=== PATIENT | female | born 1965 | race Caucasian/White ===

== ENCOUNTER 2016-08-16 21:54 | Emergency (ER) | payer OTHER ==
[~2016-08-16] VITALS: Ht 160 cm; Wt 89.5 kg
[~2016-08-16 21:54] MED LIST: ESCI1TAB10 PO; QUET1TAB32 PO; SYN125 PO
[2016-08-16 22:01] VITALS: TEMP 36.5; Ht 160 cm; Wt 89.5 kg
[2016-08-16] MEDS ORDERED: XYLOCAINE 1%/SOD BICARB 20 ML VIAL INFIL ONE (22:13)
[2016-08-16] MEDS ORDERED: TRAZ100T29 PO (22:39)
[2016-08-16 23:07] VITALS: BP 108/67; PULSE 73; O2SAT 100
--- NOTE | 2016-08-17 01:39 | EMERGENCY ROOM VISIT NOTE ---
ED Visit Note First contact with patient: 22:14 Chief Complaint: I cut my right thumb. History of Present Illness: Ms. Montero is a 50-year-old white female who ambulates into the ED accompanied by her complaining of a right thumb laceration. Patient reports less than an hour ago she was cleaning a kitchen knife and accidentally cut her left thumb. Prior to arrival at the hospital she did control bleeding but did not wash the wound. Currently she denies any associated pain with her injury. She reports mild paresthesias over the ulnar side of the thumb. She denies any fevers, chills, sweats, other finger paresthesias, difficulty flexing and extending the MCP or interphalangeal joint. Review of Systems: As noted above in history of present illness. Past Medical History: Hypothyroidism. Current Medications: Synthroid, trazodone. Allergies to Medications: Patient denies. Social History: Patient is currently employed; she feels safe in her home environment; she denies tobacco use. Tetanus Immunization Status: Patient reports up-to-date. Physical Examination: Vital Signs: Date Time Temp Pulse Resp B/P Pulse Ox O2 Delivery O2 Flow Rate FiO2 08/16/16 23:07 73 16 108/67 100 08/16/16 22:01 36.5 65 16 124/85 98 Room Air GENERAL: 50-year-old female in mild distress due to pain, nontoxic-appearing, afebrile and hemodynamically stable. NEUROLOGICAL: Awake, alert and oriented to person, place and time. Answering questions appropriately and following commands. SKIN: Warm, dry and pink. Right Thumb: 1.8 cm full-thickness laceration over the ulnar side of the thumb starting at the mid thumbnail and radiating anterior into the tuft of the thumb. No active bleeding. RIGHT UPPER EXTREMITY: Soft tissue injury as noted above. No gross bony deformity. Full range of motion in flexion and extension of the interphalangeal and DIP joints. Throughout the thumb the skin was warm and pink and capillary refill is brisk. She is able to distinguish light sensations through all dermatomes. ED Course: Patient is assessed as noted above. Wound Repair: Complexity: Basic Verbal consent was obtained after the risks and benefits were explained. The skin was prepped with betadine and a sterile field set. Wound edges of the wound was anesthetized with 0.8 ml buffered 1% lidocaine. The wound was explored for foreign bodies and none found. Copious irrigation was performed using sterile saline. With direct pressure the bleeding subsided. Debridement was not performed. The wound edges were approximated using 5-0 Ethilon with 3 simple interrupted sutures. Hemostasis and excellent approximation was achieved. Antibacterial ointment and a sterile dressing applied. No complications and the patient tolerated the procedure well. Patient was educated about tonight's findings and instructed on his treatment plan; she verbalizes understanding and agreement with this plan. Clinical Impression: Laceration of the right thumb. Disposition: Patient discharged home in stable condition accompanied by her . Plan: Comfort measures, wound care, and signs of infection were discussed with the patient. Patient was encouraged to follow-up with PCP or return to the ED for signs of infection and/or suture in 10-12 days.
== END 2016-08-16 23:04 | disposition home or self-care (01) ==
LOC: C.EDB 21:55 → C.EDD 23:04
DX: S61.011A Laceration without foreign body of right thumb without damage to nail, initial encounter (principal); W26.0XXA Contact with knife, initial encounter; E03.9 Hypothyroidism, unspecified